=== PATIENT | male | born 1960 | race Hispanic/Latino ===

== ENCOUNTER → 2024-06-28 | Outpatient (CLI) | payer MEDICARE | END | disposition home or self-care (01) | LOC: OIH 10:23 | PROVIDERS: ATTEND Family Medicine | DX: M19.042 Primary osteoarthritis, left hand (principal); M19.032 Primary osteoarthritis, left wrist; M25.832 Other specified joint disorders, left wrist; M25.842 Other specified joint disorders, left hand; M25.532 Pain in left wrist | CPT/HCPCS: 73110; 73130 ==